=== PATIENT | female | born 1970 ===

== ENCOUNTER 2017-01-23 13:36 | Emergency (ER) | payer OTHER ==
[2017-01-23 13:40] VITALS: BMI 24.0
[2017-01-23 13:44] VITALS: RESP 18; TEMP 97.7; O2SAT 97
--- NOTE | 2017-01-23 14:03 | ED PDOC ---
Arrival/HPI - General Chief Complaint: Finger,Hand,&Wrist Time Seen by Provider: 01/23/17 13:48 Historian: Patient - History of Present Illness Narrative History of Present Illness (Text): 01/23/17 14:28 Patient is a 46 y/o F presenting with L 4th finger swelling. Caregiver reports that she noticed patient's L 4th finger was swollen today. Patient has MR and communicated to caregiver that she caught her finger in her dresser. Time/Duration: 1-3 hours Symptom Onset: Gradual Symptom Course: Unchanged Severity Level: Mild Activities at Onset: Light Context: Home Past Medical History - Provider Review Nursing Documentation Reviewed: Yes - Infectious Disease Hx of Infectious Diseases: None - Tetanus Immunization Tetanus Immunization: Unknown - Cardiac Other/Comment: Heart murmur - Pulmonary Hx Respiratory Disorders: No - Neurological Hx Neurological Disorder: Yes Hx Seizures: Yes - HEENT Hx HEENT Disorder: Yes Hx Blind: Yes (left eye) - Renal Hx Renal Disorder: No - Endocrine/Metabolic Hx Endocrine Disorders: Yes Hx Hypothyroidism: Yes Other/Comment: Downs syndrome - Hematological/Oncological Hx Blood Disorders: No - Integumentary Hx Dermatological Disorder: No - Musculoskeletal/Rheumatological Hx Musculoskeletal Disorders: Yes Other/Comment: scoliosis - Gastrointestinal Hx Gastrointestinal Disorders: No - Genitourinary/Gynecological Hx Genitourinary Disorders: No - Psychiatric Hx Psychophysiologic Disorder: No Hx Depression: No Hx Emotional Abuse: No Hx Physical Abuse: No Hx Substance Use: No - Surgical History Hx Orthopedic Surgery: Yes (scoliosis (yary in back)) - Anesthesia Hx Anesthesia: Yes Hx Anesthesia Reactions: No Hx Malignant Hyperthermia: No - Suicidal Assessment Feels Threatened In Home Enviroment: No Family/Social History - Physician Review Nursing Documentation Reviewed: Yes Family/Social History: No Known Family HX Smoking Status: Never Smoked Hx Alcohol Use: No Hx Substance Use: No Hx Substance Use Treatment: No Allergies/Home Meds Allergies/Adverse Reactions: Allergies No Known Allergies Allergy (Verified 05/17/15 18:11) Home Medications: Home Meds Medication Instructions Recorded Confirmed Quetiapine Fumarate [Seroquel] 100 mg PO BID 12/14/13 01/23/17 Valproic Acid 250 mg PO TID 12/14/13 01/23/17 Polyethylene Glycol 3350 [Miralax] 2 tsp PO BID 03/19/14 01/23/17 Ergocalciferol [Drisdol 50,000 1 cap PO Q7D 01/23/17 01/23/17 Intl Units Cap] Ibuprofen [Motrin Tab] 1 tab PO DAILY PRN 01/23/17 01/23/17 Methimazole [Methimazole] 1 tab PO DAILY 01/23/17 01/23/17 Review of Systems - Physician Review All systems were reviewed & negative as marked: Yes - Review of Systems Systems not reviewed;Unavailable: Other (Mental Retardation.) Skin: Other (L 4th finger pain and swelling) Physical Exam Vital Signs Reviewed: Yes Vital Signs Temp Pulse Resp BP Pulse Ox 01/23/17 15:04 65 18 115/71 97 01/23/17 13:44 97.7 F 64 18 117/78 97 Temperature: Afebrile Blood Pressure: Normal Pulse: Regular Respiratory Rate: Normal Appearance: Positive for: Well-Appearing, Non-Toxic, Comfortable Pain Distress: Mild - Systems Exam Head: Present: Atraumatic, Normocephalic Pupils: Present: PERRL Extroacular Muscles: Present: EOMI Conjunctiva: Present: Normal Mouth: Present: Moist Mucous Membranes Neck: Present: Normal Range of Motion Respiratory/Chest: Present: Clear to Auscultation, Good Air Exchange. No: Respiratory Distress, Accessory Muscle Use Cardiovascular: Present: Regular Rate and Rhythm, Normal S1, S2. No: Murmurs Abdomen: No: Tenderness, Distention Back: Present: Normal Inspection. No: CVA Tenderness Upper Extremity: Present: Swelling (Swelling and tenderness to base of L 4th proximal phalanx) Lower Extremity: Present: Normal Inspection. No: Edema Medical Decision Making ED Course and Treatment: 01/23/17 13:55 Impression: 46 year old female complaining left wrist pain and swelling to left 4th finger after closing finger in dresser Differential Diagnosis included but are not limited to: Plan: -- Left hand X-ray -- Left wrist X-ray -- Reassess and disposition Prior Visits: Notes and results from previous visits were reviewed. Patient last seen in the ED on 05/17/15 for difficulty swallowing solids and liquids that day. Patient was discharged home. Progress Notes: 01/23/17 14:45 Left Wrist X-ray: Dictator : Adelina Blood MD FINDINGS: BONES:Bone alignment and mineralization are normal. There is no acute fracture or bone destruction. JOINTS:Normal. The proximal and distal carpal rows are maintained. SOFT TISSUES:Normal. OTHER FINDINGS:None. IMPRESSION: Normal examination. 01/23/17 14:46 Left Hand X-ray: Dictator : Adelina Blood MD FINDINGS: BONES: Bone alignment and mineralization are normal. There is a small subarticular lucency in the proximal phalanx of the 4th finger along the radial aspect, stable finding since radiographs from 09/06/2006. JOINTS:Normal. No osteoarthritic changes. SOFT TISSUES: There is periarticular soft tissue swelling at the proximal interphalangeal joint of the 4th finger with faint periarticular calcifications along radial aspect. OTHER FINDINGS:None. IMPRESSION: Periarticular soft tissue swelling in the 4th PIP joint with mild periarticular calcification along the radial aspect and stable subarticular lucency in the proximal phalanx which likely represents subarticular cystic change. The differential considerations include infectious and inflammatory arthritides. Clinical correlation and follow-up is advised. 01/23/17 14:50 Caregiver was made aware of xray results. Results seem more consistent with inflammation due to recent trauma. Spoke to caregiver about concern that it could be infectious but less likely. Gave caregiver detailed return instructions and will dc with antibiotics. Caregiver reports that she feels comfortable taking patient home and will return with any worsening symptoms. - RAD Interpretation Radiology Orders: 01/23/17 13:48 HAND LEFT 3 VIEWS ROUTINE [RAD] Stat WRIST, LEFT 3 VIEWS [RAD] Stat - Medication Orders Current Medication Orders: Discontinued Medications Cephalexin Monohydrate (Keflex) 250 mg PO STAT STA PRN Reason: Protocol Stop: 01/23/17 14:50 Last Admin: 01/23/17 15:17 Dose: 250 mg Ibuprofen (Motrin Oral Susp) 400 mg PO STAT STA Stop: 01/23/17 14:14 Last Admin: 01/23/17 14:42 Dose: 400 mg Disposition/Present on Arrival - Present on Arrival Any Indicators Present on Arrival: No History of DVT/PE: No History of Uncontrolled Diabetes: No Urinary Catheter: No History of Decub. Ulcer: No History Surgical Site Infection Following: None - Disposition Have Diagnosis and Disposition been Completed?: Yes Diagnosis: Finger swelling Disposition: HOME/ ROUTINE Disposition Time: 14:50 Patient Plan: Discharge Condition: GOOD Discharge Instructions (ExitCare): Swollen Joint (ED) Additional Instructions: Take full course of antibiotics. Return to ED if condition worsens. Follow-up with PMD within 2 days. Prescriptions: Cephalexin Susp [Keflex] 250 mg PO Q6 #200 ml Referrals: Blake Staley MD [Primary Care Provider] - Follow up with primary Forms: [employer] (Serbian)
--- NOTE | 2017-01-23 14:44 | RAD ---
PROCEDURE: Left Wrist Radiographs. HISTORY: L wrist pain COMPARISON: None. FINDINGS: BONES: Bone alignment and mineralization are normal. There is no acute fracture or bone destruction. JOINTS: Normal. The proximal and distal carpal rows are maintained. SOFT TISSUES: Normal. OTHER FINDINGS: None. IMPRESSION: Normal examination.
--- NOTE | 2017-01-23 14:44 | RAD ---
PROCEDURE: Left Hand Radiographs. HISTORY: L hand pain, swelling to 4th digit COMPARISON: 09/06/2006 FINDINGS: BONES: Bone alignment and mineralization are normal. There is a small subarticular lucency in the proximal phalanx of the 4th finger along the radial aspect, stable finding since radiographs from 09/06/2006. JOINTS: Normal. No osteoarthritic changes. SOFT TISSUES: There is periarticular soft tissue swelling at the proximal interphalangeal joint of the 4th finger with faint periarticular calcifications along radial aspect. OTHER FINDINGS: None. IMPRESSION: Periarticular soft tissue swelling in the 4th PIP joint with mild periarticular calcification along the radial aspect and stable subarticular lucency in the proximal phalanx which likely represents subarticular cystic change. The differential considerations include infectious and inflammatory arthritides. Clinical correlation and follow-up is advised.
[2017-01-23] MEDS ORDERED: Cephalexin Susp 250 MG/5 ML PO STA (14:49)
[2017-01-23 15:04] VITALS: BP 115/71; PULSE 65
== END 2017-01-23 15:19 | disposition home or self-care (01) ==
LOC: ED 13:36
DX: M25.442 Effusion, left hand (principal)